=== PATIENT | female | born 1960 | race Caucasian/White ===

== ENCOUNTER 2019-05-06 06:45 | Day surgery (SDC) | payer OTHER ==
[~2019-05-06] VITALS: Ht 152.4 cm; Wt 78.5 kg
[2019-05-06] MEDS ORDERED: fentaNYL 0.05 MG/ML VIAL ONE (08:19)
[2019-05-06] MEDS ORDERED: LIDOCAINE 2% 100 MG/5 ML UJET TP ONE (08:20)
== END 2019-05-06 09:05 | disposition home or self-care (01) ==
LOC: MDS 06:45 → MMU 06:46 → MDS 09:05
PROVIDERS: ATTEND Internal Medicine Gastroenterology
DX: Z12.11 Encounter for screening for malignant neoplasm of colon (principal); K63.5 Polyp of colon; E78.00 Pure hypercholesterolemia, unspecified; E66.9 Obesity, unspecified; Z68.33 Body mass index [BMI] 33.0-33.9, adult
CPT/HCPCS: 45385; J3010

== ENCOUNTER 2020-08-02 17:35 | Emergency (ER) | payer OTHER ==
[~2020-08-02] VITALS: Ht 152.4 cm; Wt 76.2 kg
[2020-08-02 17:39] VITALS: BP 117/73
[2020-08-02] MEDS: KETOROLAC 30 MG/ML VIAL IM ONE (18:12)
[2020-08-02 18:35] VITALS: BP 115/70
== END 2020-08-02 18:30 | disposition home or self-care (01) ==
LOC: MED 17:35
DX: M79.672 Pain in left foot (principal); M19.072 Primary osteoarthritis, left ankle and foot; M77.32 Calcaneal spur, left foot
CPT/HCPCS: 73630; 96372; 99283; J1885; Q0092